=== PATIENT | male | born 1960 | race Caucasian/White ===

== ENCOUNTER 2017-11-30 01:21 | Inpatient (IN) | payer OTHER ==
[~2017-11-30] VITALS: Ht 188 cm; Wt 122.9 kg
[~2017-11-30 01:21] MED LIST: ADDERALL 20 MG20 MG PO; ALPRAZOLAM1 M2 PO; CRESTOR20 M2 PO; FENOFIBRIC ACID35 MG PO
--- NOTE | 2017-11-30 10:25 | Admission Core Measures ---
Acute Coronary Syndrome (CM) ACS Core Measures Acute Coronary Syndrome Diagnosis No Congestive Heart Failure (NEW) CHF Core Measures Congestive Heart Failure Diagnosis No Cerebrovascular Accident (NEW) CVA Core Measures CVA/TIA Diagnosis No Venous Thromboembolism VTE Core Esther (View Protocol) VTE Risk Factors Surgery No Mechanical VTE Prophylaxis d/t N/A MechProphylax Ordered No VTE Pharm Prophylaxis d/t NA PharmProphylax ordered Problem List As ranked by this Provider includes Assessment & Plan 1. Unilateral primary osteoarthritis, left knee HOME MEDS Home Med List Alprazolam 1 MG TABLET 1 TAB PO QPM ANXIETY/SLEEP (Reported) Dextroamphetamine/Amphetamine (Adderall 20 MG Tablet) 20 MG TABLET 1 TAB PO BID PRN ADHD (Reported) Fenofibric Acid (Unknown Strength) TABLET (Unknown Dose) PO DAILY CHOLESTEROL/ TRIGLYCERIDES (Reported) Rosuvastatin Calcium (Crestor) 20 MG TABLET 1 TAB PO DAILY CHOLESTEROL ( Reported)
--- NOTE | 2017-11-30 10:25 | Surg Short-stay <48hrs Dis Sum ---
Visit Information Visit Dates Admission Date: 11/30/17 Discharge Date: 12/03/17 Surgical Short Stay DC Summary Admission Diagnosis: Primary osteoarthritis, left knee Final Diagnosis: Same, status post left total knee arthroplasty Procedure(s): Left total knee arthroplasty Summary/Significant Findings: Patient was admitted to the hospital for an elective left total knee replacement. Procedure was tolerated well and patient was transferred to a general surgical floor. Diet was advanced and tolerated. Physical therapy performed evaluation and treatment. At time of hospital discharge, vital signs were stable, neurovascular status was intact, and pain was controlled with the use of oral pain medications. Condition at Discharge: Stable Discharge Disposition: home health services Discharge instructions provided to patient/family: Yes Post discharge follow-up plan: Follow up with Dr. Ernst in 6 weeks from date of surgery. Please call his office to schedule/confirm this appointment.
--- NOTE | 2017-11-30 10:28 | Patient Discharge Instructions ---
Discharge Instructions General Discharge Information You were seen/treated for: Left knee pain due to osteoarthritis You had these procedures: Left total knee arthroplasty Watch for these problems: Increasing pain despite the use of pain medication Increasing redness, warmth or swelling Drainage of any type from incision Inability to bear weight on operative leg Persistent nausea and vomiting Fever greater than 101.5 degrees Other wound care: Please keep wound clean and dry. No ointments or lotions of any type on or near incision. Your dressing will be changed by your nurse on the second day after your surgery. Daily dry dressing changes are recommended each day thereafter. You may shower 48hr after surgery. Do not soak your wound- no tub baths or swimming. Special Instructions: Aspirin: You are taking this medication to help prevent blood clot formation. Please take with food to protect your stomach lining. Take as directed. Omeprazole: Take this medication to protect your stomach lining while taking high dose NSAIDs. Constipation: Pain medication can cause constipation. It is recommended that you take Colace and miralax daily. You may discontinue this medication if you develop loose stool or diarrhea. If you wish to continue this medication, it is available over the counter. If you are unable to move your bowels or pass gas after several days, please contact your doctor. Diet Continue normal diet: Yes Activity Activity Limited to: Weight bear as tolerated Additional ACTIVITY Info: Use assisted device as needed Acute Coronary Syndrome Inclusion Criteria At DC or during hospital stay patient has or had the following: ACS DIAGNOSIS No Discharge Core Measures Meds if any: Prescribed or Continued at Discharge Meds if any: NOT Prescribed or Continued at Discharge Congestive Heart Failure Inclusion Criteria At DC or during hospital stay patient has or had the following: CHF DIAGNOSIS No Discharge Core Measures Meds if any: Prescribed or Continued at Discharge Meds if any: NOT Prescribed or Continued at Discharge Cerebrovascular accident Inclusion Criteria At DC or during hospital stay patient has or had the following: CVA/TIA Diagnosis No Discharge Core Measures Meds if any: Prescribed or Continued at Discharge Meds if any: NOT Prescribed or Continued at Discharge Venous thromboembolism Inclusion Criteria VTE Diagnosis No VTE Type NONE VTE Confirmed by (Test) NONE Discharge Core Measures - Per Current guidelines, there needs to be overlap - treatment for the first 5 days of Warfarin therapy. - If discharged on Warfarin prior to 5 days of - overlap therapy, the patient will need to be - assessed for post discharge needs including - *Post discharge parental anticoagulation - *Warfarin and/or parental anticoagulation education - *Follow up date to check INR post discharge At least 5 days overlap therapy as Inpatient No Meds if any: Prescribed or Continued at Discharge Note: Overlap Therapy is Warfarin and Anticoagulant Meds if any: NOT Prescribed or Continued at Discharge
[2017-11-30] MEDS ORDERED: COLACE100 M1 PO (10:55)
[2017-11-30] MEDS ORDERED: DILAUDID2 M1 PO (10:55)
[2017-11-30] MEDS ORDERED: ASPIRIN325 M2 PO (10:55)
[2017-11-30] MEDS ORDERED: MIRALAX17 G1 PO (10:55)
[2017-11-30] MEDS ORDERED: MS CONTIN15 M3 PO (10:55)
[2017-11-30] MEDS ORDERED: OMEPRAZOLE20 M2 PO (10:55)
[2017-11-30 16:05] VITALS: BP 162/64
--- NOTE | 2017-11-30 18:11 | Operative Report ---
Operative/Inv Procedure Report Surgery Date: 11/30/17 Name of Procedure: Left total knee replacement Pre-Operative Diagnosis: Primary left knee DJD Post-Operative Diagnosis: Same Estimated Blood Loss: 50ml to 100ml Surgeon/Independent Film Maker: Mike Ernst MDColin An Anesthesia: block Operative/Procedure Note Note: Description of Procedure: The patient was taken to the operating room and positively identified. After induction of spinal anesthesia and administration of appropriate pre-operative antibiotics, the patient was positioned supine on the operating room table and all bony prominences were well padded. A well-padded pneumatic tourniquet was placed on the left upper thigh. After performing a surgical timeout, the left lower extremity was prepped and draped in the usual sterile fashion. After exsanguination with Esmarch the tourniquet was inflated to 250mm of mercury. A standard medial parapatellar approach was made to the knee. This was carried down through skin and subcutaneous tissue to the level of the fascia. Meticulous hemostasis was maintained with Bovie electrocautery. The extensor mechanism and patellar retinaculum were opened sharply and the patella was everted. The infrapatellar fat was resected in order to improve exposure. Osteophytes were trimmed from the patella and femoral condyles and the patella was re-everted and tucked laterally. A medial release was performed and the cruciate ligaments were resected. The tibia was then subluxed anteriorly. Utilizing the appropriate extra-medullary guide, the proximal tibia was trimmed perpendicular to the long axis of the tibial shaft. Attention was then turned to the femur. After opening the medullary canal, the distal femoral cut was made in 6 degrees of valgus utilizing the appropriate intra-medullary guide. The extension gap was checked and found to be appropriate. The femur was then sized and the remainder of the femoral cuts were made with a size 6 4-in-1 femoral cutting guide. The flexion gap was checked and found to be symmetric and appropriate. The knee was then trialed with a size 6 femoral component, a size 6 tibial component and a size 16 mm polyethylene insert. The patella was trimmed to accept an A 38 patella. This yielded excellent range of motion, stability and patellar tracking. All trial components were removed and the knee was copiously irrigated with sterile saline. All components were cemented into place with [place] Simplex cement. All the components were of the Andrew Triathlon knee system of the above stated sizes. The knee was again irrigated after cementation. The extensor mechanism and patellar retinaculum were repaired using interrupted #1 vicryl suture. The skin was re-approximated with 2-0 vicryl and closed with maykel. A sterile dressing was applied, the tourniquet was deflated, the patient was awakened and taken to the recovery room in satisfactory condition.
--- NOTE | 2017-11-30 18:11 | PN- Orthopedic ---
Subjective Subjective: POST-OP NOTE Reports significant knee pain. Nurse was concerned about giving additional narcotics due to spinal, but explained to patient we need to treat pain as best as we can. Tolerating diet. No nausea. Denies dizziness. No shortness of breath. No chest pains. Due to void (according to him). Objective Vital Signs and I&Os Vital Signs Date Time Temp Pulse Resp B/P B/P Pulse O2 O2 Flow FiO2 Mean Ox Delivery Rate 11/30 1605 97.6 70 16 162/64 99 Room Air Intake & Output 11/30 1600 11/30 0800 11/30 0000 11/29 1600 11/29 0800 11/29 0000 Intake Total Output Total Balance Patient 235 lb Weight Physical Exam: General - alert & oriented x 3. comfortable. no acute distress. Lungs - clear bilaterally. no w/r/r. Cardiac - s1s2. reg. Abdomen - soft. nontender. Extremities - warm bilaterally. left knee dressing c/d/i. on q in place. calves soft and nontender. nvi. Current Medications: Current Medications Sig/Palak Start time Last Medication Dose Route Stop Time Status Admin Acetaminophen 650 MG Q4P PRN 11/30 1630 AC PO Acetaminophen 0 .STK-MED ONE 11/30 0923 DC PO Acetaminophen 975 MG ONCE 11/30 0000 DC PO 11/30 2359 Alprazolam 1 MG AT BEDTIME 11/30 2200 AC PO 12/07 2159 Aspirin 325 MG BID 11/30 2200 AC PO Atorvastatin Calcium 80 MG 1700 11/30 1700 AC PO Cefazolin Sodium 2 GM IQ8 11/30 1600 AC N/A 1 UNIT IV 12/01 0029 Cefazolin Sodium 2,000 MG ONCE 11/30 0000 DC IV 11/30 2359 Dextrose/Sodium 1,000 ML .[id number] 11/30 1630 AC 11/30 Chloride IV 1600 Diphenhydramine HCl 25 MG SEE ADMIN CRITERIA.. 11/30 1515 AC IV Docusate Sodium 100 MG BID 11/30 2200 AC PO Fentanyl Citrate 100 MCG .STK-MED ONE 11/30 0711 DC IM 11/30 0712 Hydromorphone HCl 2 MG Q4P PRN 11/30 1630 AC PO Hydromorphone HCl 4 MG Q4P PRN 11/30 1630 AC PO Ketorolac 30 MG SEE ADMIN CRITERIA.. 11/30 1515 AC Tromethamine IV 12/01 1514 Ketorolac 15 MG Q6 11/30 1200 AC 11/30 Tromethamine IV 12/01 1801 1754 Lorazepam 0 .STK-MED ONE 11/30 0939 DC PO Metoclopramide HCl 10 MG Q6P PRN 11/30 1515 AC IV Midazolam HCl 4 MG .STK-MED ONE 11/30 0711 DC IM 11/30 0712 Morphine Sulfate 2 MG Q2P PRN 11/30 1630 AC IV Morphine Sulfate 10 MG .STK-MED ONE 11/30 0711 DC IV 11/30 0712 Naloxone HCl 0.4 MG SEE ADMIN CRITERIA.. 11/30 1515 AC IV Omeprazole 20 MG DAILY AC 12/01 0700 AC PO Ondansetron HCl 4 MG Q6P PRN 11/30 1630 AC IV Oxycodone HCl 0 .STK-MED ONE 11/30 0923 DC PO Oxycodone HCl 10 MG ONCE 11/30 0000 DC PO 11/30 2359 Polyethylene Glycol 17 GM DAILY 12/01 1000 AC PO Promethazine HCl 12.5 MG Q6P PRN 11/30 1630 AC IV 12/07 1044 Ropivacaine 500 ML ONCE ONE 11/30 1100 AC ON-Q Ball 1 BAG INJ 12/02 1259 Tranexamic Acid 2,000 MG .STK-MED ONE 11/30 0710 DC IV 11/30 0711 Assessment/Plan Assessment/Plan This 57 year old male with primary left knee DJD is POD#0 s/p left total knee replacement tolerating diet due to void this evening on q increased narcotic pain medication is necessary, which was explained to nurse paty-op ancef asa bid - dvt ppx f/u AM labs PT eval in am dressing change POD#2 his goal is to go home will d/w Core Measures Venous Thromboembolism VTE Risk Factors Surgery No Mechanical VTE Prophylaxis d/t N/A MechProphylax Ordered No VTE Pharm Prophylaxis d/t NA PharmProphylax ordered
[2017-11-30 19:56] VITALS: BP 130/80
[2017-11-30 23:00] VITALS: BP 138/80
[2017-12-01 00:01] VITALS: BP 132/76
[2017-12-01 03:56] VITALS: BP 132/86
[2017-12-01 08:24] VITALS: BP 138/78
--- NOTE | 2017-12-01 08:26 | PN- Orthopedic ---
See Addendum Subjective Subjective: Patient unable to void overnight, S.C x 1. Patient admits to moderate amount of right knee and right calf pain and cramping this am. Denies any tingling or grinding sensation. Tolerating a diet without nausea or emesis. Denies any fevers, chills, chest pain, or SOB. Objective Vital Signs and I&Os Vital Signs Date Time Temp Pulse Resp B/P B/P Pulse O2 O2 Flow FiO2 Mean Ox Delivery Rate 12/01 0356 99.3 95 18 132/86 97 Room Air 12/01 0001 99.2 90 20 132/76 98 Room Air 11/30 2300 99.0 92 18 138/80 99 Room Air 11/30 1956 98.5 84 19 130/80 94 Room Air 11/30 1942 Room Air Room Air 11/30 1605 97.6 70 16 162/64 99 Room Air Intake & Output 12/01 1600 12/01 0800 12/01 0000 / 1600 11/30 0800 11/30 0000 Intake Total 1100 1400 Output Total 750 500 Balance 350 900 Intake, IV 600 600 Intake, Oral 500 800 Output, Urine 750 500 Patient 752 lb 250 lb Weight Weight Bed scale Reported by Patient Measurement Method Physical Exam: Lying in bed in NAD. Cardiac: RRR Pulmonary: CTAB LLE: Knee dressing c/d/i. On Q in place. Calf soft and compressible, non tender to palpation. Negative Dmitri's. Able to wiggle toes. Sensation and motor grossly intact, 5/5 strength. + DP/PT pulse. Assessment/Plan Assessment/Plan A/P: 57 year old male with primary left knee DJD is POD#1 s/p left total knee replacement. Complaining of knee pain to be expected but moderate amount of left calf pain this am. - Will obtain LLE duplex scan secondary to calf pain - Continue diet as tolerated - Monitor ability to void - Continue On Q - Pain control and antiemetics prn - Follow up am labs - PT eval this am - Dressing change POD # 2 - DVT ppx - ASA 325 mg BID - His goal is to go home - Will d/w Core Measures Venous Thromboembolism VTE Risk Factors Surgery No Mechanical VTE Prophylaxis d/t N/A MechProphylax Ordered No VTE Pharm Prophylaxis d/t NA PharmProphylax ordered
[2017-12-01 09:13] LABS: ABSOLUTE BASOPHIL COUNT 0 /CUMM (0.0-0.2); ABSOLUTE EOSINOPHIL COUNT 0.1 /CUMM (0.0-0.7); ABSOLUTE GRANULOCYTE CT 6.8 /CUMM (1.4-6.5); BASOPHIL % 0.2 % (0.0-2.0); EOSINOPHIL % 1.1 % (0-5); GRANULOCYTE % 69.2 % (42.2-75.2); HEMATOCRIT 34.7 % (42-52); MEAN CORPUSCULAR HGB 30.2 PG (27.0-31.0); MEAN CORPUSCULAR HGB CONC 34.9 G/DL (33.0-37.0); MEAN CORPUSCULAR VOLUME 86.6 FL (80.0-94.0); MEAN PLATELET VOLUME 8.9 FL (7.4-10.4); PLATELET COUNT 163 /CUMM (130-400); RBC DISTRIBUTION WIDTH 13.1 % (11.5-14.5); RED BLOOD CELL CT 4.01 /CUMM (4.70-6.10); WHITE BLOOD CELL COUNT 9.8 /CUMM (4.8-10.8)
[2017-12-01 13:26] VITALS: BP 142/80
--- NOTE | 2017-12-01 13:44 | ULTRASOUND REPORT ---
EXAMINATION: US TRIPLEX LOWER EXTREMITY, LEFT CLINICAL INFORMATION: Status post total knee replacement one day ago. COMPARISON: None TECHNIQUE: Color-flow triplex imaging with spectral analysis and compression Doppler were performed on the lower extremity. FINDINGS: Respiratory variation, normal compression and augmented flow are noted throughout the lower extremity. The visualized common femoral vein, superficial femoral vein, profunda femoral vein, popliteal vein and midcalf peroneal and posterior tibial venous segments show no evidence of deep venous thrombosis. There is a partially thrombosed superficial calf vein identified in the area of pain. There is no Kenny's cyst. IMPRESSION: No evidence of deep venous thrombosis involving the lower extremity. A thrombosed superficial calf vein is identified in the posterior mid calf in the area of pain.
--- NOTE | 2017-12-01 16:10 | ULTRASOUND REPORT ---
EXAMINATION: NONINVASIVE ASSESSMENT OF THE ARTERIES OF THE LEFT LOWER EXTREMITIES INTERPRETING VASCULAR \T\ INTERVENTIONAL RADIOLOGIST: Waldo Campbell MD CLINICAL INFORMATION: Postop concern for arterial puncture from nerve block TECHNIQUE: Left-sided lower extremity duplex ultrasound was performed with velocity measurements and waveform analysis in the common femoral arteries, profunda femoris arteries, proximal mid and distal superficial femoral arteries, popliteal arteries and tibial vessels. This study was performed only at rest. COMPARISON: None FINDINGS: Velocities in cm/sec and phasicity as well as the presence of plaque are reported below. LEFT LEG: Common Femoral: 147/25 Profunda Femoris: 94/13 Proximal SFA: 155/19 Mid SFA: 158/30 Distal SFA: 154/29 Popliteal: 112/16 Anterior tibial: 70/8 Posterior tibial: 77/10 Dorsalis pedis: 12/5 Normal triphasic flow is present and there is no evidence to suggest vessel occlusion or pseudoaneurysm formation. IMPRESSION: There is no evidence of any hemodynamically significant lower extremity arterial disease by pressure, waveform or duplex Doppler criteria at rest. No evidence of vascular injury.
[2017-12-01 18:00] VITALS: BP 132/80
[2017-12-01 22:06] VITALS: BP 140/90
--- NOTE | 2017-12-01 22:14 | Event Note ---
Event Note Event Note: Called to floor by RN brianne pt complaining of chills and has fever of 100.9. Pt said he has felt warm all day today and has been having chills this evening. Denies URI syptoms, SOB, cough, rhinorea. pt admits he hasnt been using his IS much. showed me that he can use it and get it up to 4Liters with deep inhalation. Denies dysurea. Denies diarrhea. Only complaints is left knee and calf pain, he has a known clot in left calf and is on anticoagulation. gen-NAD resp- clear bilaterally cardio- RRR ext- left leg in JOANNE wrap, clean and dry. good distal sensation and motor function. DVT may be cause of fever however, for completeness, will get CXR. UTI is unlikely as patient did not have a roy and has no urinary symptoms and has been voiding appropriately. Continue IV tylenol Will monitor closely
--- NOTE | 2017-12-01 22:52 | RADIOLOGY REPORT ---
EXAMINATION: XR CHEST CLINICAL INFORMATION: Postop fever COMPARISON: None TECHNIQUE: 2 views of the chest were obtained. FINDINGS: No focal consolidation, pulmonary edema, or pleural effusion. Normal cardiomediastinal silhouette. IMPRESSION: Unremarkable examination.
[2017-12-02 02:29] VITALS: BP 128/66
[2017-12-02 06:30] VITALS: BP 140/78
--- NOTE | 2017-12-02 11:11 | PN- Orthopedic ---
Subjective Subjective: Continues to complain of calf pain. Is concerned about superficial thrombus in calf vein, expressed concerns of losing leg as a result. Does not feel that pain meds are effective. Denies chest pain, shorntess of breath and difficulty breathing. Denies nasuea and vomitting. Had GERD, resolved with maalox. Is voiding. Ambulated this am, did not do stairs. Wishes to be discharged to home , not STR. Objective Vital Signs and I&Os Vital Signs Date Time Temp Pulse Resp B/P B/P Pulse O2 O2 Flow FiO2 Mean Ox Delivery Rate 12/02 0630 98.4 87 20 140/78 96 Room Air 12/02 0229 99.5 83 18 128/66 93 Room Air 12/01 2206 100.9 99 20 140/90 97 Room Air 12/01 1800 97.8 95 20 132/80 97 Room Air 12/01 1326 98.6 93 20 142/80 96 Room Air Intake & Output 12/02 1600 12/02 0800 12/02 0000 12/01 1600 12/01 0800 12/01 0000 Intake Total 400 201 346 9765 1400 Output Total 950 1200 400 750 500 Balance -550 -620 440 350 900 Intake, IV 100 100 600 600 600 Intake, Oral 300 480 240 500 800 Number 0 Bowel Movements Output, Urine 950 1200 400 750 500 Patient 285 lb 752 lb 250 lb Weight Weight Bed scale Bed scale Reported by Patient Measurement Method Physical Exam: General: Alert and oriented x3, no acute distress Cardiac: RRR, s1s2 Pulm: CTA bilaterally, non-labored respiratory effort Abd: non-tender, non-distended Extremties: Moves all extremities, distal sensation grossly intact. Skin warm and well perfused. DP pulses palpable bilaterally. Left calf tender. Right calf soft and non-tender. Surgical site: Left knee. Dressing dry and intact, taken down. Skin edges well approixmated. No drainage noted. Harper in place. Some surrounding bruising noted. Clean dry dressing reapplied. Assessment/Plan Assessment/Plan This is a 57 year old male, POD 2 s/p l tkr -Continue asa 325 bid for dvt ppx, recommend follow up ultrasound in one week to reassess superficial thrombus, arterial study showed no arterial injury, pulses intact, patient reassured. -Continue current pain regimen -Contiue oob, wbat -Continue diet as tolerated -Continue maalox prn -Continue bowel regimen Will discuss poc with Dr. Ernst Core Measures Venous Thromboembolism VTE Risk Factors Surgery No Mechanical VTE Prophylaxis d/t N/A MechProphylax Ordered No VTE Pharm Prophylaxis d/t NA PharmProphylax ordered
[2017-12-02 11:20] VITALS: BP 122/72
[2017-12-02 14:01] VITALS: BP 150/70
[2017-12-02 22:36] VITALS: BP 126/80
[2017-12-03 04:00] VITALS: BP 130/74
[2017-12-03 07:22] VITALS: BP 132/80
--- NOTE | 2017-12-03 09:20 | PN- Orthopedic ---
Subjective Subjective: Patient is slightly more comfortable this morning, still with complaints of severe knee pain, medication is helping him. He had mild low-grade fever last night but is asymptomatic. Still with very small amount of Pain in the localized area to lateral calf. Also complaints of headache after the Dilaudid wears off. Objective Vital Signs and I&Os Vital Signs Date Time Temp Pulse Resp B/P B/P Pulse O2 O2 Flow FiO2 Mean Ox Delivery Rate 12/03 0722 98.7 90 20 132/80 96 Room Air 12/03 0400 99.5 86 20 130/74 96 Room Air 12/02 2236 98.9 90 20 126/80 94 Room Air 12/02 1528 98.0 12/02 1401 100.2 94 150/70 12/02 1401 100.2 94 20 150/70 94 Room Air 12/02 1120 100.6 104 20 122/72 95 Intake & Output 12/03 1600 12/03 0800 12/03 0000 12/02 1600 12/02 0800 12/02 0000 Intake Total 360 900 960 400 580 Output Total 278 866 7517 950 1200 Balance 60 300 -290 -550 -620 Intake, IV 100 100 Intake, Oral 360 900 960 300 480 Number 0 Bowel Movements Output, Urine 916 212 5879 950 1200 Patient 271 lb 285 lb Weight Weight Bed scale Measurement Method Physical Exam: Well-developed well-nourished no apparent distress. HEENT: Atraumatic, extraocular motion intact Neck: Supple, no lymphadenopathy Respiratory: No respiratory distress Extremities: Left foot moderate swelling, LEFT lower extremity dressing in place, Incision line is clean dry and intact No signs of infection. Mild joint effusion Range of motion is 0-60. Compression wrap in place. ALPS in place Neurovascularly intact distally Bilateral calves are supple, mild tenderness left lateral calf region. Neuro: Alert and oriented x3 Psych: Mood affect normal, normal memory normal judgment. Skin: Warm and dry, no rash on exposed skin Assessment/Plan Assessment/Plan This is a 57 year old male, POD 3 s/p l tkr -Continue asa 325 bid for dvt ppx, recommend follow up ultrasound in one week to reassess superficial thrombus, outpatient prescription provided and discussed with patient -Continue current pain regimen -Contiue oob, wbat -Continue diet as tolerated -Toradol for headache when necessary -Continue bowel regimen -Continue physical therapy, DC home today pain controlled and clears physical therapy, visiting nurse as outpatient Core Measures Venous Thromboembolism VTE Risk Factors Surgery No Mechanical VTE Prophylaxis d/t N/A MechProphylax Ordered No VTE Pharm Prophylaxis d/t NA PharmProphylax ordered
[2017-12-03] MEDS ORDERED: MS CONTIN30 M1 PO (11:01)
[2017-12-03] MEDS ORDERED: DIAZEPAM5 M1 PO (11:01)
== END 2017-12-03 14:28 | disposition home health service (06) | DRG 470 ==
LOC: SDA 01:21 → ENTRNSPT 13:41 → EDTRNSPTSTS 13:58 → EDTRNSPT 13:58 → CMPTRNSPT 14:22 → ENRESERV 14:41 → CMPTRNSPT 15:13 → ENTRNSPT 15:16 → EDTRNSPT 15:48 → EDTRNSPTSTS 15:52 → EDTRNSPT 15:52 → 2NA 15:57 → CMPTRNSPT 16:18 → ENPENDDIS 12-03 11:19 → 2NA 12-03 14:28
PROVIDERS: Physician Assistant Surgical
PROC: 3E0T3BZ Introduction of Anesthetic Agent into Peripheral Nerves and Plexi, Percutaneous Approach (ICD-10-PCS; principal; 2017-11-30)
PROC: 0SRD0J9 Replacement of Left Knee Joint with Synthetic Substitute, Cemented, Open Approach (ICD-10-PCS; principal; 2017-11-30)
DX: M17.12 Unilateral primary osteoarthritis, left knee (principal); E66.9 Obesity, unspecified; G47.33 Obstructive sleep apnea (adult) (pediatric); H91.90 Unspecified hearing loss, unspecified ear; Z85.828 Personal history of other malignant neoplasm of skin; Z68.32 Body mass index [BMI] 32.0-32.9, adult; Z96.651 Presence of right artificial knee joint
CPT/HCPCS: 2NASP; 36592; 71046; 82436; 88305; 97110-GO; 97116-GO; 97161-GP; 97530-GO; C1713; J0131; J0690; J0735; J1885; J2405; J2550; J2795; J3490; J7042

== ENCOUNTER → 2018-01-23 | Day surgery (SDC) | payer OTHER ==
[~2018-01-23] VITALS: Ht 188 cm; Wt 104.3 kg
[~2018-01-23] MED LIST changes: +ASPIRIN325 M2 PO; +COLACE100 M1 PO; +DIAZEPAM5 M1 PO; +DILAUDID2 M1 PO; +MIRALAX17 G1 PO; +MS CONTIN15 M3 PO; +MS CONTIN30 M1 PO; +OMEPRAZOLE20 M2 PO; +OXYCODONE HCL5 M1 PO
--- NOTE | 2018-01-23 14:11 | Operative Report ---
Operative/Inv Procedure Report Surgery Date: 01/23/18 Name of Procedure: Left knee manipulation under anesthesia Pre-Operative Diagnosis: Left knee stiffness Post-Operative Diagnosis: Same Estimated Blood Loss: none Surgeon/Greenhouse Superintendent: Mike Ernst MD Anesthesia: laryngeal mask airway Operative/Procedure Note Note: The patient was taken to the operating room and positively identified. After induction of general anesthesia he was positioned supine on the operating table and all bony prominences well-padded. Prior to manipulation, he lacked 10 of extension. Flexion was to 90. Utilizing gentle but firm pressure over the tibial tubercle, the knee was flexed from 90 to approximately 120. Audible release of scar tissue was noted. Attention was then turned to extension. Utilizing firm pressure over the distal femur with the heel on the bed, the knee was manipulated into extension. Firm pressure was maintained over the distal femur until approximately 5-6 of extension were recovered. The knee was then prepped sterilely and injected with a mixture of 2 mL of Depo- Medrol and 6 mL of half percent Marcaine. A Band-Aid was placed over the injection site. The patient was then awakened and taken to the recovery room in satisfactory condition.
== END ==
LOC: STS 02:26
DX: M24.662 Ankylosis, left knee (principal); Z96.652 Presence of left artificial knee joint; Z79.01 Long term (current) use of anticoagulants
CPT/HCPCS: C9290; J2250